=== PATIENT | male | born 1950 ===

== ENCOUNTER 2021-01-30 06:20 | Outpatient (CLI) | payer MEDICARE, OTHER ==
[~2021-01-30] VITALS: Ht 165.1 cm; Wt 79.0 kg
== END 2021-01-30 16:18 | disposition home or self-care (01) ==
LOC: PREOP 06:20
PROVIDERS: ATTEND Internal Medicine
DX: Z01.818 Encounter for other preprocedural examination (principal)

== ENCOUNTER 2021-02-02 07:53 | Day surgery (SDC) | payer MEDICARE ==
--- NOTE | 2021-01-30 11:01 | HISTORY AND PHYSICAL ---
DATE OF SERVICE: COLONOSCOPY HISTORY AND PHYSICAL The patient is a 71-year-old white male seen for the first time with reports of intermittent bright red blood per rectum over the past several months with change in bowel habit. He reports some initial diarrhea that was nonbloody nor it was associated with any significant abdominal pain. This began several months ago in addition to the bleeding, reportedly small volume without clots. The diarrhea moderated but he still reports having one loose stool per day, which is not typical for him. He denies any change in weight. He has had no reported antibiotic therapy for several years and there is no reported travel history. He has relocated from [place] and is here to establish for primary care as well as undergoing colonoscopy. This has been recommended by his provider in [place], Dr. Tracey. He reports one other colonoscopy in 2014, at which time he had per his 's report he believes 2 polyps removed and was noted to have diverticular disease. He reports no past history of diverticulitis. PAST MEDICAL HISTORY: Significant for hypertension, hyperlipidemia and depression. He reports no known history for cardiovascular disease. He also has a past history of generalized seizure disorder, first noted at the age of 26, which has been under good control on lamotrigine; it has been a number of years since his last seizure. PAST SURGICAL HISTORY: He has had lumbar fusion, believes L3 through L5. He underwent endovascular repair of abdominal aortic aneurysm 3 or 4 years ago. He has had three arthroscopic knee surgeries. 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 He reports a [id number] smoking history, still smoking about a pack of cigarettes per day and is a [place] . Denies any history of posttraumatic stress disorder or injury including concussion during the war. FAMILY HISTORY: He is not aware of any family history for colon cancer. There is history for hypertension. He is not aware of any other malignancies run in the family. REVIEW OF SYSTEMS: CONSTITUTIONAL: Denies night sweats, chills, fever, or change in weight. GASTROINTESTINAL: As noted in the HPI. PULMONARY: Reports some dyspnea on exertion, no dyspnea at rest, chronic cough with minimal sputum production, no hemoptysis, no wheezing. CARDIOVASCULAR: Denies chest pain, orthopnea, PND, pedal edema or syncope. PHYSICAL EXAMINATION: GENERAL: Reveals a pleasant overweight white male in no acute distress. VITAL SIGNS: Weight 174 pounds, blood pressure 144/84. HEENT: Unremarkable. No evidence for pallor. Sclerae nonicteric. Ear canals clear with normal TMs. NECK: Revealed no JVD, adenopathy or bruits. CHEST: Clear to auscultation. CARDIOVASCULAR: Reveals a regular rate and rhythm without murmur, S3 or S4. ABDOMEN: Soft, supple without mass, organomegaly or tenderness. EXTREMITIES: Reveal no cyanosis, clubbing or edema. SKIN: Evaluation reveals no suspicious nevi. ASSESSMENT AND PLAN: 1. For further investigation of intermittent bright red blood per rectum or change in bowel habit, the patient is undergoing diagnostic colonoscopy. Prep instructions and Suprep kit were given and questions were answered. 2. Hypertension, we will need to obtain his old records to look at blood test done earlier this year and continue to monitor. 3. Tobaccoism, strongly advised discontinuation of smoking. He had been able to quit in the past for about a year on his own. We will further discuss options and investigate true willingness to attempt smoking cessation on return. 4. Generalized seizure disorder. Continue lamotrigine, which the patient has tolerated well for many years without side effect. 5. Depression reportedly in remission. Continue Zoloft and amitriptyline. We will need yearly lab evaluation including lipid panel, for which the patient will be set up for future exam pending evaluation of his previous medical record. Job ID: [id number] DocumentID: [id number] Dictated Date: 01/30/2021 10:38:27 Managing Broker Date: 01/30/2021 11:00:02 Dictated By: MJ WILHELM MD MTDD
[~2021-02-02] VITALS: Ht 165.1 cm; Wt 79.0 kg
[2021-02-02] MEDS ORDERED: LACTATED RINGERS 1,000 ML IV STA (07:56)
--- OUTSIDE RECORDS SUMMARY | 2021-02-02 07:59 | XMS REPORT | Clinical Summary ---
Author Author [facility] Organization [facility] Address Unknown Phone Unavailable Care Team Providers Care Line Service Person Name Role Phone Maynor Tracey MD PCP Allergies Comments Active Allergy Reactions Severity Noted Date Medication interaction with lamictal Tramadol Seizures 04/24/2018 Medications End Date Status Medication Sig Dispensed Refills Start Date Active amitriptyline (ELAVIL) Take 100 mg 3 01 100 MG tablet by mouth 8 daily. Active VIMPAT 50 mg Tab tablet Take 50 mg by 5 mouth 2 (two) 8 times a day. Active lamoTRIgine (LAMICTAL) TAKE 7 11 01 100 MG tablet TABLETS BY 8 MOUTH DAILY Active gabapentin (NEURONTIN) Take 300 mg 0 300 MG capsule by mouth 2 (two) times a day. Pt takes 3 tabs 2x a day Active lisinopril Take 40 mg by 0 (PRINIVIL,ZESTRIL) 40 MG mouth 2 (two) tablet times a day. Active sertraline (ZOLOFT) 100 Take 100 mg 0 mg tablet by mouth daily. Active atorvastatin (LIPITOR) 80 Take 80 mg by 0 MG tablet mouth daily. Active hydroCHLOROthiazide Take 25 mg by 0 (HYDRODIURIL) 25 MG mouth daily. tablet Active therapeutic multivitamin Take 1 tablet 0 (THERAGRAN) tablet by mouth daily. Active cholecalciferol, vitamin Take 1 tablet 0 D3, (VITAMIN D3) 4,000 by mouth unit cap daily. Active cyanocobalamin (VITAMIN Take 1,000 0 B-12) 1000 MCG tablet mcg by mouth daily. Active oxyCODONE (ROXICODONE) 5 Take 1-2 42 tablet 0 0 05/10/ MG immediate release tablets (5-10 9 tablet mg total) by mouth every 4 (four) hours as needed. Max Daily Dose: 60 mg Active acetylcysteine (NAC) 600 Take 1 0 05/26 mg cap capsule capsule (600 9 mg total) by mouth 2 (two) times a day. Active aspirin 81 MG chewable Chew 1 tablet 0 01 tablet (81 mg total) 9 2 (two) times a day. Active coenzyme Q10 300 mg cap Take 1 tablet 0 by mouth 9 daily. Active omega 3 fish oil (SEA Take 1 0 05/27/19 1 OMEGA) DHA 200 mg-EPA 300 capsule 9 mg (1,000 mg) capsule (1,000 mg total) by mouth 2 (two) times a day. Active Problems Problem Noted Date Partial epilepsy with impairment of consciousness Overview: Formatting of this note might be differ ent from the original. ICD-10 conversion Family History Medical History Relation Name Comments Anesthesia problems Neg Hx Malig Hypertension Neg Hx Malig Hyperthermia Neg Hx Pseudochol deficiency Neg Hx Social History Date Tobacco Use Types Packs/Day Years Used Quit: 04/03/2018 Former Smoker Cigarettes Smokeless Tobacco: Never Used Comments: pt is using a low dose vap. Comments Alcohol Use Standard Drinks/Week social Yes 0 (1 standard drink = 0.6 o z pure alcohol) Alcohol Habits Answer Date Recorded How often do you have a drink containing alcohol? No t asked How many drinks containing alcohol do you have on No t asked a typical day when you are drinking? How often do you have six or more drinks on one Not asked occasion? Comment: social 04/24/2018 Sex Assigned at Date Recorded Not on file Last Filed Vital Signs Reading Time Taken Comments Vital Sign 113/47 05/20/2018 7:35 AM CDT Blood Pressure 82 05/20/2018 8:51 AM CDT Pulse 36.3 °C (97.4 °F) 05/20/2018 7:35 AM CDT Temperature 18 05/20/2018 8:51 AM CDT Respiratory Rate 96% 05/20/2018 8:51 AM CDT Oxygen Saturation - - Inhaled Oxygen Concentration 87.5 kg (193 lb) 05/18/2018 8:26 AM CDT Weight 167.6 cm (5' 6") 05/18/2018 8:26 AM CDT Height 31.15 05/18/2018 8:26 AM CDT Body Mass Index Plan of Treatment Health Maintenance Due Date Last Done Comments Medicare Annual Wellness 1950 Td/Tdap# 1950 COVID-19 Vaccine (1) 1963 Colorectal Screening via 2001 Colonoscopy Zoster Vaccine# (1 of 2) 2001 AAA 01/02/2016 Advance Care Plan 01/02/2016 Conversation Needed # Depression Screening 01/02/2016 PHQ-9 # Pneumococcal Vaccine: 65+ 01/02/2016 Years (1 of 1 - PPSV23) Fall Risk Assessment # 05/21/2019 05/20/2018 Influenza Vaccine (#1) 2020 03/16/2020 Hepatitis C Screen Completed 05/07/2012 Implants Device Identifier Shelf Expiration Date Model / Serial / L ot Implanted Type Area Manufactur er 09/09/2020 [id number] / / [id number] Implant Spine Cage Prolift 15deg Non-Tissue N/A: Spine LIFE SPINE 10-16mm [id number] - [id number] Implant Lum bar Implanted: Qty: 1 on 05/08/2018 by Ralph Zheng MD at [facility] [id number] / / [id number] Implant Connector Lynx Cross Arched Non-Tissue N/A: Spine LIFE SPINE 55mm [id number] - [id number] Implant Lumbar Implanted: Qty: 1 on 05/08/2018 by Ralph Zheng MD at [facility] 09/20/2018 [id number] / / [id number] Implant Bone Graft Nanoss Bioactive Non-Tissue N/A: Spine PIONEER 3d 10cc 25mm X 50mm X 8mm Synthetic Implant Lumbar SURGICAL [id number] - [id number] Implanted: Qty: 2 on 05/08/2018 by Ralph Zheng MD at [facility] 09/20/2018 [id number] / / [id number] Implant Bone Graft Nanoss Bioactive Non-Tissue N/A: Spine PIONEER 3d 10cc 25mm X 50mm X 8mm Synthetic Implant Lumbar SURGICAL [id number] - [id number] Implanted: Qty: 1 on 05/08/2018 by Ralph Zheng MD at [facility] [id number] 4 [id number] Implant Screw Spine Non-Gina Poly Non-Tissue N/A: Spine LIFE SPINE 6.5mm Nilsa X 40mm Long 465-40-5 - Implant Lumba r [id number] Implanted: Qty: 4 on 05/08/2018 by Ralph Zheng MD at [facility] [id number] 4 [id number] Implant Screw Spine Non-Gina 6.5mm Non-Tissue N/A: Spine LIFE SPINE Nilsa X 45mm Long [id number] - Implant Lumbar [id number] Implanted: Qty: 2 on 05/08/2018 by Ralph Zheng MD at [facility] [id number] Implant Garfield Pre Lordosed 5.5 X 65mm Non-Tissue N/A: Spine LIFE SPINE [id number] - [id number] Implant Lumbar Implanted: Qty: 2 on 05/08/2018 by Ralph Zheng MD at [facility] [id number] 4 [id number] Implant Cap Locking [id number] - Non-Tissue N/A: Spine L LATOYA SPINE [id number] Implant Lumbar Implanted: Qty: 6 on 05/08/2018 by Ralph Zheng MD at [facility] 09/09/2020 [id number] / / [id number] Implant Spine Cage Prolift 15deg Non-Tissue N/A: Spine LIFE SPINE 10-16mm [id number] - [id number] Implant Lum bar Implanted: Qty: 1 on 05/08/2018 by Ralph Zheng MD at [facility] Bilateral Total Knees Stent And Coil Abdominal Results Not on filefrom Last 3 Months Insurance Type Payer Benefit Subscriber ID Effective Phone Address Plan / Dates Group Medicare MEDICARE MEDICARE [id number] 2015- [phone] WPS GHA PART A B Present ATTN CLAIMS DEPT [address] [place] [address] COMMERCIAL-NONCONTRACTED AARP [id number] 2018-P [address] MEDICARE resent [id number] SUPPLEMENT [place] [id number] Advance Directives For more information, please contact: [phone] 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
[2021-02-02] MEDS ORDERED: LIDOCAINE JELLY 2% 6 ML SYRINGE MM PRN (08:00)
[2021-02-02 08:05] VITALS: BP 169/95
[2021-02-02] MEDS ORDERED: HYDR25TA4 PO (08:22)
[2021-02-02] MEDS ORDERED: ATOR80TA76 PO (08:22)
[2021-02-02] MEDS ORDERED: AMIT100T2 PO (08:22)
[2021-02-02] MEDS ORDERED: LISI40TA9 PO (08:22)
[2021-02-02] MEDS ORDERED: SERT-414 PO (08:22)
[2021-02-02] MEDS ORDERED: LAMO100T5 PO (08:22)
--- NOTE | 2021-02-02 08:28 | Pre-Op Note & Conscious Sedat ---
Pre-Operative Progress Note H&P Reviewed The H&P was reviewed, patient examined and no changes noted. Date H&P Reviewed: Feb 02, 2021 Time H&P Reviewed: 08:27 Conscious Sedation Pre-Proced ASA Score 2 �For ASA 3 and 4: Consider anesthesia and medical clearance.� Also, for patients with a history of failed moderate sedation consider anesthesia.� Airway Lungs Heart ASA score ASA 1: a normal healthy patient ASA 2: a patient with a mild systemic disease (mid diabetes, controlled hypertension, obesity ASA 3: a patient with a severe systemic disease that limits activity (angina, COPD, prior Myocardial infarction) ASA 4: a patient with an incapacitating disease that is a constant threat to life (CHF, renal failure) ASA 5: a moribund patient not expected to survive 24 hrs. (ruptured aneurysm) ASA 6: a declared brain- patient whose organs are being harvested. For emergent operations, add the letter E after the classification Mallampati Classification Grade 2 Sedation Plan Analgesia, Amnesia, Plan communicated to team members, Discussed options with patient/fam, Discussed risks with patient/fam The patient is an appropriate candidate to undergo the planned procedure, sedation, and anesthesia. The patient immediately re-assessed prior to indication. MJ WILHELM MD Feb 02, 2021 08:28
[2021-02-02] MEDS ORDERED: MIDAZOLAM 2 MG/2 ML (VERSED) VIAL ONE (09:00)
[2021-02-02] MEDS ORDERED: PROPOFOL INJECTION 50 ML IV ONE (09:00)
[2021-02-02 09:35] VITALS: BP 137/67
[2021-02-02 09:40] VITALS: BP 141/67
[2021-02-02 09:45] VITALS: BP 141/67
[2021-02-02 10:12] VITALS: BP 180/90
[2021-02-02 10:19] VITALS: BP 180/90
--- NOTE | 2021-02-02 12:55 | Anesthesia-General Post-Op ---
MAC Patient Condition Mental Status/LOC: Same as Preop Cardiovascular: Satisfactory Nausea/Vomiting: Absent Respiratory: Satisfactory Pain: Controlled Complications: Absent Post Op Complications Complications None Follow Up Care/Instructions Patient Instructions None needed. Anesthesiology Discharge Order Discharge Order Patient is doing well, no complaints, stable vital signs, no apparent adverse anesthesia problems. No complications reported per nursing. KATHIE DONALD CRNA Feb 02, 2021 12:55
--- NOTE | 2021-02-02 15:58 | OPERATIVE REPORT ---
DATE OF SERVICE: COLONOSCOPY SUMMARY INDICATION FOR THE PROCEDURE: Rectal bleeding, diarrhea. DESCRIPTION OF PROCEDURE: The patient was placed in the left lateral decubitus position. Prior to undergoing colonoscopy, digital rectal evaluation was performed. Anal sphincter tone was normal. Perianal reflexes intact. Prostate was anodular and normal in size to digital inspection. No other abnormalities were noted on digital inspection of anal canal or distal rectal vault. The colonoscope was then inserted into the rectum and under direct visualization advanced to cecum. The cecum was identified by identification of ileocecal valve and cecal strap. Photographic documentation was obtained. Careful inspection was made as colonoscope withdrawn. Quality of prep was good. FINDINGS: There was no evidence for internal or external hemorrhoids. No significant inflammatory change was noted in the rectum. A biopsy from the rectum and the ascending colon were obtained and submitted for evaluation for microscopic colitis. No other rectal abnormalities were noted. A 5 mm sessile polyp was noted in the mid sigmoid colon. It was biopsied and ablated and submitted for histopathology with no subsequent blood loss. Similar polyp was noted in the distal transverse colon, which was biopsied and ablated and sent for histopathology. Mild to moderate diverticular disease confined to the sigmoid colon was present without evidence for diverticulitis. The descending colon and hepatic and splenic flexure were unremarkable. The remainder of the transverse colon was unremarkable as was the hepatic flexure. Present in the mid ascending colon was a sessile adenomatous appearing polyp roughly measuring 8 x 15 mm in size. It was biopsied and ablated in 2 locations and submitted for histopathology. There was no subsequent blood loss. Remainder of the ascending colon and cecum were unremarkable. ASSESSMENT: 1. Three polyps were removed via hot forceps today, the most significant in the mid ascending colon. As noted above, we will await histopathology report before recommending future screening, but will most likely be advocating no longer than 1 year. 2. Mild to moderate diverticular disease without evidence for diverticulitis was present contained in the sigmoid colon. 3. There was no evidence for internal or external hemorrhoids. No definitive bleeding sites identified. Patient reassured. He was told to abstain from aspirin and nonsteroidal medication for the next week. Biopsies were obtained from the rectum and ascending colon to rule out underlying microscopic colitis. CC: Dr. Maynor Tracey in [place], [place] - requested, unable to deliver Job ID: [id number] DocumentID: [id number] Dictated Date: 02/02/2021 09:34:50 Body Maker Machine Setter Date: 02/02/2021 15:58:10 Dictated By: MJ WILHELM MD
== END 2021-02-02 10:20 | disposition home or self-care (01) ==
LOC: ENDO 07:53
PROVIDERS: ATTEND Internal Medicine
DX: D12.3 Benign neoplasm of transverse colon (principal); D12.5 Benign neoplasm of sigmoid colon; K63.5 Polyp of colon; K62.1 Rectal polyp; K57.31 Diverticulosis of large intestine without perforation or abscess with bleeding; K52.9 Noninfective gastroenteritis and colitis, unspecified; I10 Essential (primary) hypertension; F32.A Depression, unspecified; F17.210 Nicotine dependence, cigarettes, uncomplicated; G40.409 Other generalized epilepsy and epileptic syndromes, not intractable, without status epilepticus; Z79.899 Other long term (current) drug therapy
CPT/HCPCS: 88305